=== PATIENT | male | born 1960 | race Caucasian/White ===

== ENCOUNTER 2020-11-18 08:31 | Outpatient (REF) | payer OTHER, SELFPAY ==
[2020-11-18 11:56] LABS: Alanine Aminotransferase 30 U/L (0-40); Albumin Level 4.5 g/dL (3.5-5.0); Alkaline Phosphatase 66 U/L (39-117); Anion Gap 13 (12-20); Aspartate Amino Transferase 21 U/L (5-37); Bilirubin Total 0.6 mg/dL (0.0-1.0); Blood Urea Nitrogen 15 mg/dL (9-16); Calcium 9.5 mg/dL (8.4-10.2); Carbon Dioxide 26 mmol/L (22-29); Chloride 105 mmol/L (96-108); Cholesterol 205 mg/dL; Estimated Glomerular Filt Rate > 60; Glucose Fasting 99 mg/dL (60-99); HDL Cholesterol 33 mg/dL; LDL Cholesterol Calculated 141 mg/dl; Potassium 4.5 mmol/L (3.3-5.1); Sodium 139 mmol/L (135-145); Total Protein 7.2 g/dL (6.5-8.0); Triglycerides 155 mg/dL
== END 2020-11-18 08:32 | disposition home or self-care (01) ==
LOC: HO.HMGCLDS 08:31
PROVIDERS: PCP Internal Medicine; Visit Provider Internal Medicine
DX: E78.9 Disorder of lipoprotein metabolism, unspecified (principal); I10 Essential (primary) hypertension
CPT/HCPCS: 36415; 80053; 80061

== ENCOUNTER 2022-02-11 07:02 | Outpatient (REF) | payer OTHER, SELFPAY ==
[2022-02-11 11:39] LABS: Hematocrit 45.6 % (42.0-52.0); Hemoglobin 14.8 g/dl (14.0-18.0); Mean Corpuscular HGB Conc 32.5 g/dl (31.0-36.0); Mean Corpuscular Hemoglobin 29.4 pg (27.0-33.0); Mean Corpuscular Volume 90.5 fL (80.0-98.0); Mean Platelet Volume 10.3 fL (9.4-12.4); Platelet Count 275 X10*3/uL (160-400); Red Blood Count 5.04 X10*6/uL (4.60-5.80); Red Cell Distribution Width 13.5 % (11.0-16.0); White Blood Count 8.8 X10*3/uL (4.8-10.8)
[2022-02-11 12:21] LABS: Creatinine Urine 158.23 mg/dL; Microalbum/Creatinine Ratio Ur 7.5 ug/mg cr
[2022-02-11 12:31] LABS: Alanine Aminotransferase 31 U/L (0-40); Albumin Level 4.5 g/dL (3.5-5.0); Alkaline Phosphatase 63 U/L (39-117); Anion Gap 16 (12-20); Aspartate Amino Transferase 24 U/L (5-37); Bilirubin Total 0.4 mg/dL (0.0-1.0); Blood Urea Nitrogen 19 mg/dL (9-16); Calcium 9.5 mg/dL (8.4-10.2); Carbon Dioxide 27 mmol/L (22-29); Chloride 102 mmol/L (96-108); Cholesterol 208 mg/dL; Estimated Glomerular Filt Rate > 60; Glucose Fasting 99 mg/dL (60-99); HDL Cholesterol 32 mg/dL; LDL Cholesterol Calculated 139 mg/dl; Potassium 4.6 mmol/L (3.3-5.1); Sodium 140 mmol/L (135-145); Total Protein 7.3 g/dL (6.5-8.0); Triglycerides 186 mg/dL
[2022-02-11 12:39] LABS: Prostate Specific Antigen Scr 0.25 ng/mL (<0.05-4.0); TSH reflex Free T4 5.33 uIU/mL (0.32-4.0)
[2022-02-11 13:21] LABS: Free T4 (Free Thyroxine) 0.87 ng/dL (0.71-1.85)
== END 2022-02-11 07:03 | disposition home or self-care (01) ==
LOC: HO.HMGCLDS 07:02
PROVIDERS: PCP Physician Assistant; Visit Provider Physician Assistant
DX: E78.5 Hyperlipidemia, unspecified (principal); I10 Essential (primary) hypertension; Z12.5 Encounter for screening for malignant neoplasm of prostate
CPT/HCPCS: 36415; 80053; 80061; 82043; 84153; 84439; 84443; 85027

== ENCOUNTER 2022-05-26 13:34 | Outpatient (REF) | payer OTHER, SELFPAY ==
--- NOTE | ~2022-05-26 | CT_ITS ---
EXAMINATION: CT CHEST SCREENING CLINICAL INFORMATION: Nicotine dependence. COMPARISON: None TECHNIQUE: Multidetector volumetric CT imaging of the chest was performed without contrast using low-dose technique. Additional 2D coronal and sagittal reformatted images and axial 3D maximum intensity projection (MIP) images were generated on the CT workstation. This CT examination was performed using dose optimization techniques as appropriate, variously including the following: *Automated exposure control *Adjustment of mA and/or kV according to patient size (this includes techniques or standardized protocols for targeted exams where dose is matched to indication/reason for exam; i.e. extremities or head) *Use of iterative reconstruction technique DLP: 75 mGy-cm FINDINGS: LUNGS: The lungs are hyperinflated and clear of acute pneumonic etiology. There are small intrabronchial or nodules. A 6 mm nodule in the left upper lobe (axial image 26/4), a 2 mm nodule in the right upper lobe (axial image 26/4). Intrabronchial debris or nodules measuring 6 mm, 9 mm and 1.4 cm nodule left upper lobe (axial image 28/4), 3 mm nodule in the right middle lobe (axial image 307/6), intrabronchial 6 mm debris in the left lower lobe (axial image 47/4). MEDIASTINUM: Thyroid lobes are symmetric and normal. The central trachea and the bronchi are widely patent. Heart size and the great vessels are normal caliber. There is no pericardial effusion seen. Small shotty lymph nodes are seen in the mediastinum. CORONARY ARTERY CALCIFICATION: [id number] coronary artery calcifications are seen. PLEURA: There is no pleural effusion, mass or thickening. AXILLA: Small shotty lymph nodes are seen in the left axilla. UPPER ABDOMEN: The visualized liver, spleen, pancreas and bilateral adrenal glands are unremarkable. OSSEOUS STRUCTURES: No aggressive lytic or sclerotic process is seen. Mild ventral spondylosis is seen in the mid and lower dorsal spine. CT/CT lung screening IMPRESSION: 1. Hyperinflated lungs without acute pneumonic etiology. 2. There are multiple intrabronchial nodules as described above, the largest measuring 6 mm. ASSESSMENT: Lung-RADS category 3: Probably Benign RECOMMENDATION: 6-month low-dose CT.
== END 2022-05-26 13:35 | disposition home or self-care (01) ==
LOC: HO.CT 13:34
PROVIDERS: PCP Physician Assistant; Visit Provider Physician Assistant Medical
DX: Z12.2 Encounter for screening for malignant neoplasm of respiratory organs (principal); F17.210 Nicotine dependence, cigarettes, uncomplicated
CPT/HCPCS: 71271; G0296

== ENCOUNTER 2022-11-03 07:18 | Outpatient (REF) | payer OTHER, SELFPAY | END 2022-11-03 07:19 | disposition home or self-care (01) | LOC: HO.HMGCLDS 07:18 | PROVIDERS: PCP Physician Assistant; Visit Provider Physician Assistant | DX: Z01.818 Encounter for other preprocedural examination (principal); Z12.5 Encounter for screening for malignant neoplasm of prostate; E03.9 Hypothyroidism, unspecified; I10 Essential (primary) hypertension; E78.2 Mixed hyperlipidemia; F17.200 Nicotine dependence, unspecified, uncomplicated | CPT/HCPCS: 36415; 80048; 80053; 80061; 84153; 84439; 84443; 85027; 85610 ==

== ENCOUNTER 2022-12-11 09:02 | Outpatient (REF) | payer OTHER, SELFPAY ==
--- NOTE | ~2022-12-11 | CT_ITS ---
EXAMINATION: CT CHEST SCREENING CLINICAL INFORMATION: Lung cancer screening. Six-month followup. Current smoker. 43 pack-year history. COMPARISON: Previous chest CT April 2022. TECHNIQUE: Multidetector volumetric CT imaging of the chest is performed without contrast using low dose technique. Additional 2D coronal and sagittal reformatted images and axial 3D maximum intensity projection (MIP) images are generated on the CT workstation. This CT examination was performed using dose optimization techniques as appropriate, variously including the following: *Automated exposure control *Adjustment of mA and/or kV according to patient size (this includes techniques or standardized protocols for targeted exams where dose is matched to indication/reason for exam; i.e. extremities or head) *Use of iterative reconstruction technique DLP: 65 mGy-cm FINDINGS: LUNGS: Mild emphysema. Small clustered central left upper lobe nodules largest measuring 4 x 6 mm axial image 184 and 193 series 5. There is mild central left lung bronchiectasis and left upper lobe bronchial wall thickening. This is slightly improved from April 2022 exam. Stable heterogeneous or semisolid right middle lobe nodule near the major fissure axial image 271 series 5. No new pulmonary nodule. MEDIASTINUM: The mediastinum is normal. CORONARY ARTERY CALCIFICATION: Mild. PLEURA: There is no pleural effusion. No pleural mass or thickening. AXILLA: No lymphadenopathy. UPPER ABDOMEN: Stable 1 x 1.5 cm low-attenuation right adrenal lesion probably representing a benign lipid-rich adenoma. No imaging followup recommended. OSSEOUS STRUCTURES: Degenerative changes of the spine. CT/CT lung screen follow up IMPRESSION: Mild emphysema. Improving left upper lobe bronchial wall thickening and peribronchial nodules from April 2022 exam. ASSESSMENT: Lung-RADS category 2 RECOMMENDATION: Low dose 6-[address] followup recommended.
== END 2022-12-11 09:03 | disposition home or self-care (01) ==
LOC: HO.CT 09:02
PROVIDERS: PCP Physician Assistant; Visit Provider Physician Assistant Medical
DX: Z12.2 Encounter for screening for malignant neoplasm of respiratory organs (principal); F17.210 Nicotine dependence, cigarettes, uncomplicated; R91.8 Other nonspecific abnormal finding of lung field
CPT/HCPCS: 71250

== ENCOUNTER 2023-04-25 08:44 | Outpatient (AMB) | payer OTHER, SELFPAY ==
[2023-04-25 08:49] VITALS: BP 152/80; PULSE 84; O2SAT 100; BMI 31.4
--- NOTE | 2023-04-25 08:49 | A.OFFPC_ITS ---
Vital Signs 04/25/23 08:49 Height 5 ft 11 in Weight 225 lb BMI 31.4 BP 152/80 H Blood Pressure Location Lt brachial Position Sitting Pulse 84 Pulse Source Pulse Oximeter Pulse Oximetry (%) 100 Oxygen Delivery Method Room Air Intake Visit Reasons: f/u HTN / Hypoyhroid Intake Note: Patient is here to follow up Playback Operator Required: No Allergies No Known Allergies Allergy (Verified 04/25/23 09:24) Medication List - Last Reconciled 04/25/23 by Roberto Carlos Miranda PA-C atenolol 50 mg PO DAILY 90 days levothyroxine 25 mcg PO DAILY miscellaneous medical supply (Blood Pressure Cuff) As directed pravastatin 40 mg PO DAILY 90 days Tobacco use date assessed: 04/25/23 Dental Screening Dental Screen Date: 04/25/23 Did you have a dental visit in the last 12 months?: Yes Did you have a dental problem in the last 6 months where you did not have access to dental care?: No Was dental information given to patient?: Patient has dentist HPI f/u HTN / Hypoyhroid HPI Details Patient is a 62-year-old male here today for follow-up visit. Patient has a past medical history significant for tobacco dependency, hypertension, hyperlipidemia, lumbar disc disease, obesity. . .. Hypothyroidism:? Most recent labs showing elevated TSH , has started levothyroxine at 25 mcg .. HLD:? Patient's most recent fasting lipid panel showing borderline high cholesterol.? He continues on statin therapy without any side effect .. Hypertension: Has stopped using atenolol, blood pressure today in office elevat ed. He will restart atenolol for better blood pressure control. Will continue to work on lifestyle modifications to control his blood pressure. PLAN: Advised to monitor blood pressure at home .. Tobacco dependency: Smoking 5 cigarettes per day.? He does understand he needs to quit though has found it very difficult. He reports he started smoking as a teenager. Now in lung cancer screening program and does have pulmonary nodule that is being followed .. Obesity: Has gained weight since last office visit. Today BMI 31.4. He does understand he needs to Adapta better eating habits to reduce his weight.. [facility] Medical History History of COVID-19 Mild obstructive sleep apnea Nicotine dependence, cigarettes, uncomplicated Hypothyroidism Obese HLD (hyperlipidemia) Hypertension, essential Surgical History History of lumbar surgery History of cystoscopy History of dental surgery Family History Father Knee problem CVD (cardiovascular disease) Mother S/P triple vessel bypass CVD (cardiovascular disease) History of carotid endarterectomy Alzheimer's disease Dementia Brother No problems noted. Son No problems noted. Social History Housing: House Alcohol intake: current Alcohol intake frequency: holidays/special occasions only Patient Tobacco Use Status: Current everyday Tobacco user Tobacco use type: Cigarette Cigarettes Per Day: 4 Years Smoked: (onset 18yo , 1/2ppd x 43yrs - 21pyh) e-Cigarette/Vaping Use: Never Used service: Yes ([employer]) Current occupational status: employed Cognitive needs: No Hearing needs: No Vision needs: No Questionnaire Thrive Questionnaire Date Thrive assessed: 10/24/22 AUDIT C Alcohol Use Questionnaire (AUDIT-C) 1. How often do you have a drink containing alcohol?: Monthly or less 2. How many drinks containing alcohol do you have on a typical day when you are drinking?: 1 or 2 3. How often do you have six or more drinks on one occasion?: Never Total Score: 1 GEORGE-7 AMB Questionnaire GEORGE-7 Date GEORGE - 7 assessed: 10/24/22 Source: Developed by Drs. Erasmo Mariee, Sagrario Canales, Abilio Bennett and colleagues, with an educational sukhjinder from [employer]. Review of Systems Const Denies body aches, Denies chills, Denies excessive sweating, Denies fatigue, Denies fever(s) and Denies headache(s) Eyes Denies blurry vision ENT Denies dysphagia, Denies vertigo, Denies dizziness, Denies headache(s), Denies hearing loss and Denies tinnitus Card Denies chest pain, Denies chest pain with activity, Denies syncope, Denies irregular heart rhythm and Denies dyspnea Resp Denies chest congestion, Denies cough, Denies hemoptysis, Denies dyspnea and Denies wheezing GI Denies abdominal pain, Denies melena, Denies hematochezia, Denies coffee ground emesis, Denies dysphagia, Denies diarrhea, Denies nausea and Denies vomiting Denies difficulty urinating, Denies dysuria, Denies urinary frequency, Denies urinary hesitancy and Denies urinary urgency Musc Denies arthralgias, Denies limited range of motion, Denies muscle cramps and Denies muscle weakness Skin/Breast Denies rash and Denies skin ulcer Neuro Denies Abnormal speech present, Denies confusion, Denies vertigo, Denies dizziness, Denies syncope, Denies headache(s), Denies memory loss and Denies seizure-like activity Psych Denies anxiety, Denies confusion, Denies depression, Denies memory loss, Denies panic attacks and Denies paranoia Endo Denies excessive sweating, Denies fatigue, Denies flushing, Denies polydipsia and Denies polyuria Aller/Immun Denies wheezing Physical exam (Primary Care) Vital Signs: Last Vital Signs Pulse 84 04/25/23 08:49 BP 152/80 H 04/25/23 08:49 Pulse Ox 100 04/25/23 08:49 Oxygen Delivery Method Room Air 04/25/23 08:49 BMI result Body Mass Index 31.4 BMI Assessment/Plan discussion: High Tobacco/Smoking Status: Tobacco use Status Tobacco use date assessed 04/25/23 04/25/23 08:49 Patient Tobacco Use Status Current everyday Tobacco 04/25/23 08:49 Tobacco use type Cigarette 04/25/23 08:49 e-Cigarette/Vaping Use Never Used 04/25/23 08:49 Are you ready to quit: No Tobacco cessation counseling provided: Yes Items discussed: Nicotine replacement Relapse Prevention: discussed the importance of a supportive environment, discussed negative mood or depression after quitting, weight gain after smoking is common and discussed dietary, exercise and/or lifestyle changes Number of minutes spent counselin CPT code: 73668 - 4-10 Minutes Thrive Assessment: Date of Thrive Assessment Date Thrive assessed 10/24/22 04/25/23 08:49 Const Other: Obese General: cooperative, comfortable, no acute distress, alert and awake; No confusion Orientation/consciousness: oriented to person, oriented to place, patient oriented x3 and No confusion HENMT Head: Yes normocephalic Ears: external ears normal and TM's normal bilaterally Face and sinus: No sinus tenderness Mouth: Normal oral and palatal mucosa present and tongue normal Teeth and gingiva: dentition normal and gingiva normal Throat: Yes posterior oropharynx normal, Yes tonsils normal and Yes uvula midline Eyes Conjunctivae: conjunctivae normal Sclerae: sclerae normal Pupils: Equal, round and reactive pupils present EOM: EOMs intact bilaterally Direct Ophthalmoscopy: No no photophobia Neck Neck: Yes no lymphadenopathy, No tender and Yes no JVD Thyroid: Thyroid normal Carotids: no bruits Chest Chest palpation & inspection: no tenderness Resp Effort & Inspection: normal respiratory effort, no audible wheezes, not labored and no stridor Auscultation: no crackles, no rales, no rhonchi and no wheezes Cardio Jugular venous distension: no JVD Rate: regular rate, not bradycardic and not tachycardic Rhythm: regular rhythm Bruits: no carotid bruits Peripheral pulses: Peripheral pulses 2+ throughout GI Inspection: Yes normal to inspection, No abdominal wall ecchymosis and No visible herniation Palpation (GI): Soft to palpation, nontender, no guarding, not rigid and No hepatosplenomegaly present Auscultation: normoactive bowel sounds General: Yes no CVA tenderness Back/Spine/Pelvis Back: no CVA tenderness and No back tenderness Cervical Spine: cervical ROM normal Thoracic/Lumbar Spine: thoracic and lumbar spine normal to inspection, straight leg raise negative bilaterally, No thoraco-lumbar ROM limited and No lumbar spinal tenderness Skin Lesions: no lesions Rashes: no rashes Wounds: no wounds Neuro General: oriented to person, oriented to place, patient oriented x3, CN's II-XI intact bilaterally and No confusion Cranial nerves: Yes Equal, round and reactive pupils present and Yes Normal accommodation reflex present Cognition (Neuro): normal cognition Speech: No Abnormal speech present Gait exam (Neuro): Normal gait present Motor exam (neuro): 5/5 motor strength present throughout Extrem Right upper extremity: full ROM; no cyanosis Left upper extremity: full ROM; no cyanosis Right lower extremity: no edema Left lower extremity: no edema Psych Appearance: grossly normal Mental Status: mental status grossly normal Affect: normal affect Attitude: cooperative Thought process: Normal thought process present Assessment and Plan Assessment & Plan (1) Hypertension, essential: Code(s): I10 - Essential (primary) hypertension Plan: Blood pressure elevated today in office. Has not been taking blood pressure medication as he was able to treat his blood pressure with lifestyle. He is willing to restart atenolol and monitor blood pressure at home with goal blood pressure to be below 140/90 (2) Hypothyroidism: Code(s): E03.9 - Hypothyroidism, unspecified Qualifiers: Hypothyroidism type: unspecified Qualified Code(s): E03.9 - Hypothyroidism, unspecified Plan: Patient continues on levothyroxine 25 mcg. Will recheck TSH to assure normal. (3) HLD (hyperlipidemia): Code(s): E78.5 - Hyperlipidemia, unspecified Qualifiers: Hyperlipidemia type: mixed hyperlipidemia Qualified Code(s): E78.2 - Mixed hyperlipidemia Plan: Continues on statin therapy without side effect. Will recheck check fasting lipid panel to assure normal. Goal LDL to remain below 130 (4) Nicotine dependence, cigarettes, uncomplicated: Comment: (current smoker, onset 18yo , 1/2ppd x 43yrs - 21pyh) Code(s): F17.210 - Nicotine dependence, cigarettes, uncomplicated Plan: He does understand he needs to quit smoking. Offered nicotine replacement at though he declines at this time. Orders: Orders TSH reflex Free T4 Today E03.9 - Hypothyroidism, unspecified Roberto Carlos Miranda PA-C Lipid Panel Today E78.2 - Mixed hyperlipidemia Roberto Carlos Miranda PA-C Prostate Specific Antigen Scr Today I10 - Essential (primary) hypertension, Z12.5 - Encounter for screening for malignant neoplasm of prostate Roberto Carlos Miranda PA-C Comprehensive [place]. Panel Fast Today I10 - Essential (primary) hypertension Roberto Carlos Miranda PA-C Microalbumin, Random (w Creat) Today I10 - Essential (primary) hypertension Roberto Carlos Miranda PA-C Medications: Resumed atenolol 50 mg PO DAILY 90 days 90 tabs 1RF I10 - Essential (primary) hypertension Roberto Carlos Miranda PA-C atenolol 50 mg PO DAILY 90 days 90 tabs 0RF I10 - Essential (primary) hypertension Samanta Ricardo MD Coding Level of Care Code Est Pt Level 4 (84557) Diagnoses Hypertension, essential I10 Hypothyroidism, unspecified type E03.9 Hypothyroidism type: unspecified Mixed hyperlipidemia E78.2 Hyperlipidemia type: mixed hyperlipidemia Nicotine dependence, cigarettes, uncomplicated F17.210 Additional Codes Vital Signs *Quality* - CPT code: 51833 - 4-10 Minutes ([id number])
== END 2023-04-25 09:37 | disposition home or self-care (01) ==
PROVIDERS: PCP Physician Assistant; Visit Provider Physician Assistant
DX: I10 Essential (primary) hypertension (principal); E03.9 Hypothyroidism, unspecified; E78.2 Mixed hyperlipidemia; F17.210 Nicotine dependence, cigarettes, uncomplicated
CPT/HCPCS: 99214; 99406

== ENCOUNTER 2023-10-23 14:26 | Outpatient (AMB) | payer OTHER, SELFPAY ==
--- NOTE | 2023-10-23 14:33 | A.OFFPC_ITS ---
Vital Signs 10/23/23 14:37 Height 5 ft 11 in Weight 225 lb 2 oz BMI 31.4 BP 130/64 Blood Pressure Location Lt brachial Position Sitting Pulse 78 Pulse Source Pulse Oximeter Pulse Oximetry (%) 95 Oxygen Delivery Method Room Air Intake Visit Reasons: Annual exam Intake Note: Patient is here today for a physical. Osteopathic Resident Required: No Accompanied by: Self / Same As Patient Allergies No Known Allergies Allergy (Verified 10/23/23 14:40) Medication List - Last Reconciled 10/23/23 by Roberto Carlos Miranda PA-C atenolol 50 mg PO DAILY 90 days levothyroxine 25 mcg PO DAILY miscellaneous medical supply (Blood Pressure Cuff) As directed pravastatin 40 mg PO DAILY 90 days Tobacco use date assessed: 10/23/23 Dental Screening Dental Screen Date: 10/23/23 Did you have a dental visit in the last 12 months?: No Did you have a dental problem in the last 6 months where you did not have access to dental care?: No Was dental information given to patient?: Patient has dentist HPI Annual exam HPI Details Patient is a 62-year-old male here today for follow-up visit. Patient has a past medical history significant for tobacco dependency, hypertension, hyperlipidemia, lumbar disc disease, obesity. . .. Hypothyroidism:? He admits to not taking levothyroxine as he reports making changes in his diet and lifestyle. He will recheck TSH and if elevated will restart levothyroxine. .. HLD:? Patient's most recent fasting lipid panel showing borderline high cholesterol.? He has not been taking statin therapy a see reports making changes in his diet. .. Hypertension: He reports he continues with daily use of his atenolol. Blood pressure today acceptable. Will continue to work on lifestyle modifications to control his blood pressure. .. Tobacco dependency: Smoking 5 cigarettes per day.? He does understand he needs to quit though has found it very difficult. He reports he started smoking as a teenager. Now in lung cancer screening program and does have pulmonary nodule that is being followed . VAccine: UTD with FLu and COVID vaccine, up-to-date with tetanus and pneumonia vaccine .. Colonoscopy : cologaurd done in 2019, he has repeat in 2022 [facility] Medical History History of COVID-19 Mild obstructive sleep apnea Nicotine dependence, cigarettes, uncomplicated Hypothyroidism Obese HLD (hyperlipidemia) Hypertension, essential Surgical History History of lumbar surgery History of cystoscopy History of dental surgery Family History Father Knee problem CVD (cardiovascular disease) Mother S/P triple vessel bypass CVD (cardiovascular disease) History of carotid endarterectomy Alzheimer's disease Dementia Brother No problems noted. Son No problems noted. Social History (Updated 10/23/23 @ 14:52 by Roberto Carlos Miranda PA-C) Housing: House Alcohol intake: current Alcohol intake frequency: holidays/special occasions only Patient Tobacco Use Status: Current everyday Tobacco user Tobacco use type: Cigarette Cigarettes Per Day: 4 Years Smoked: (onset 18yo , 1/2ppd x 43yrs - 21pyh) e-Cigarette/Vaping Use: Never Used service: Yes ([employer]) Current occupational status: employed Cognitive needs: No Hearing needs: No Vision needs: No Questionnaire PHQ-9 Over the last 2 weeks, how often have you been bothered by any of the following problems? 1. Little interest or pleasure in doing things: not at all 2. Feeling down, depressed, or hopeless: not at all 3. Trouble falling or staying asleep, or sleeping too much: not at all 4. Feeling tired or having little energy: not at all 5. Poor appetite or overeating: not at all 6. Feeling bad about yourself - or that you are a failure or have let yourself or your family down: not at all 7. Trouble concentrating on things, such as reading the newspaper or watching television: not at all 8. Moving or speaking so slowly that other people could have noticed. Or the opposite - being so fidgety or restless that you have been moving around a lot more than usual: not at all 9. Thoughts that you would be better off or of hurting yourself in some way: not at all Total score: 0 Depression Screening Interpretation: Negative Depression Screening Done: Yes 62197 - PHQ-9 Billing: Yes Source: Developed by Drs. Erasmo Mariee, Abilio Ortega and colleagues, with an educational sukhjinder from [employer]. Thrive Questionnaire Date Thrive assessed: 10/23/23 I am a: Patient What is your living situation today?: I have a steady place to live Within the past 12 months, did the food you bought not last and you didn't have the money to get more?: Never true Within the past 12 months, did you worry whether your food would run out before you got money to buy more?: Never true Do you have trouble paying for medicines?: No Do you have trouble getting transportation to medical appointments?: No Do you have trouble paying your heating and electricity bill?: No Do you have trouble taking care of your child, family member or friend?: No Do you have trouble with day-to-day activities such as bathing, preparing meals, shopping, managing finances, etc.?: No Are you currently unemployed and looking for a job?: No Are you interested in more education?: No Please select the resources that you would like help with: None Currently or been in a relationship where the following occur: no concerns reported THRIVE Score: 0 AUDIT C Alcohol Use Questionnaire (AUDIT-C) 1. How often do you have a drink containing alcohol?: Monthly or less 2. How many drinks containing alcohol do you have on a typical day when you are drinking?: 1 or 2 3. How often do you have six or more drinks on one occasion?: Never Total Score: 1 GEORGE-7 AMB Questionnaire GEORGE-7 Date GEORGE - 7 assessed: 10/23/23 Feeling nervous, anxious, or on edge: 0 = Not at all Not being able to stop or control worryin = Not at all Worrying too much about different things: 0 = Not at all Trouble relaxin = Not at all Being so restless that it is hard to sit still: 0 = Not at all Becoming easily annoyed or irritable: 0 = Not at all Feeling afraid as if something awful might happen: 0 = Not at all Total GEORGE-7 score (0-4 normal; 5-9 mild; 10-14 moderate; 15-21 severe): 0 Source: Developed by Drs. Erasmo Mariee, Abilio Ortega and colleagues, with an educational sukhjinder from [employer]. GEORGE-7 Assessment Billing GEORGE-7 Assessment Tool: GEORGE-7 Assessment 67700 Review of Systems Const Denies body aches, Denies chills, Denies excessive sweating, Denies fatigue, Denies fever(s) and Denies headache(s) Eyes Denies blurry vision ENT Denies dysphagia, Denies vertigo, Denies dizziness, Denies headache(s), Denies hearing loss and Denies tinnitus Card Denies chest pain, Denies chest pain with activity, Denies syncope, Denies irregular heart rhythm and Denies dyspnea Resp Denies chest congestion, Denies cough, Denies hemoptysis, Denies dyspnea and Denies wheezing GI Denies abdominal pain, Denies melena, Denies hematochezia, Denies coffee ground emesis, Denies dysphagia, Denies diarrhea, Denies nausea and Denies vomiting Denies difficulty urinating, Denies dysuria, Denies urinary frequency, Denies urinary hesitancy and Denies urinary urgency Musc Denies arthralgias, Denies limited range of motion, Denies muscle cramps and Denies muscle weakness Skin/Breast Denies rash and Denies skin ulcer Neuro Denies Abnormal speech present, Denies confusion, Denies vertigo, Denies dizziness, Denies syncope, Denies headache(s), Denies memory loss and Denies seizure-like activity Psych Denies anxiety, Denies confusion, Denies depression, Denies memory loss, Denies panic attacks and Denies paranoia Endo Denies excessive sweating, Denies fatigue, Denies flushing, Denies polydipsia and Denies polyuria Aller/Immun Denies wheezing Physical exam (Primary Care) Vital Signs: Last Vital Signs Pulse 78 10/23/23 14:37 BP 130/64 10/23/23 14:37 Pulse Ox 95 10/23/23 14:37 Oxygen Delivery Method Room Air 10/23/23 14:37 BMI result Body Mass Index 31.4 Tobacco/Smoking Status: Tobacco use Status Tobacco use date assessed 10/23/23 10/23/23 14:38 Patient Tobacco Use Status Current everyday Tobacco 10/23/23 14:52 Tobacco use type Cigarette 10/23/23 14:52 e-Cigarette/Vaping Use Never Used 10/23/23 14:52 Are you ready to quit: No Tobacco cessation counseling provided: Yes Items discussed: Nicotine replacement Relapse Prevention: discussed the importance of a supportive environment, discussed negative mood or depression after quitting, weight gain after smoking is common and discussed dietary, exercise and/or lifestyle changes Number of minutes spent counselin CPT code: 01173 - 4-10 Minutes PHQ-9: PHQ-9 Score PHQ-9: Total score 0 10/23/23 14:48 Depression Screening Interpretation: Negative Thrive Assessment: Date of Thrive Assessment Date Thrive assessed 10/23/23 10/23/23 14:35 Currently or been in a relationship where the following occur: no concerns reported Const General: cooperative, comfortable, no acute distress, alert and awake; No confusion Orientation/consciousness: oriented to person, oriented to place, patient oriented x3 and No confusion HENMT Head: Yes normocephalic Ears: external ears normal and TM's normal bilaterally Face and sinus: No sinus tenderness Mouth: Normal oral and palatal mucosa present and tongue normal Teeth and gingiva: dentition normal and gingiva normal Throat: Yes posterior oropharynx normal, Yes tonsils normal and Yes uvula midline Eyes Conjunctivae: conjunctivae normal Sclerae: sclerae normal Pupils: Equal, round and reactive pupils present EOM: EOMs intact bilaterally Direct Ophthalmoscopy: No no photophobia Neck Neck: Yes no lymphadenopathy, No tender and Yes no JVD Thyroid: Thyroid normal Carotids: no bruits Chest Chest palpation & inspection: no tenderness Resp Effort & Inspection: normal respiratory effort, no audible wheezes, not labored and no stridor Auscultation: no crackles, no rales, no rhonchi and no wheezes Cardio Jugular venous distension: no JVD Rate: regular rate, not bradycardic and not tachycardic Rhythm: regular rhythm Bruits: no carotid bruits Peripheral pulses: Peripheral pulses 2+ throughout GI Inspection: Yes normal to inspection, No abdominal wall ecchymosis and No visible herniation Palpation (GI): Soft to palpation, nontender, no guarding, not rigid and No hepatosplenomegaly present Auscultation: normoactive bowel sounds General: Yes no CVA tenderness Back/Spine/Pelvis Back: no CVA tenderness and No back tenderness Cervical Spine: cervical ROM normal Thoracic/Lumbar Spine: thoracic and lumbar spine normal to inspection, straight leg raise negative bilaterally, No thoraco-lumbar ROM limited and No lumbar spinal tenderness Skin Lesions: no lesions Rashes: no rashes Wounds: no wounds Neuro General: oriented to person, oriented to place, patient oriented x3, CN's II-XI intact bilaterally and No confusion Cranial nerves: Yes Equal, round and reactive pupils present and Yes Normal accommodation reflex present Cognition (Neuro): normal cognition Speech: No Abnormal speech present Gait exam (Neuro): Normal gait present Motor exam (neuro): 5/5 motor strength present throughout Extrem Right upper extremity: full ROM; no cyanosis Left upper extremity: full ROM; no cyanosis Right lower extremity: no edema Left lower extremity: no edema Psych Appearance: grossly normal Mental Status: mental status grossly normal Affect: normal affect Attitude: cooperative Thought process: Normal thought process present Assessment and Plan Assessment & Plan (1) Annual physical exam: Code(s): Z00.00 - Encounter for general adult medical examination without abnormal findings (2) Hypertension, essential: Code(s): I10 - Essential (primary) hypertension Plan: Blood pressure acceptable today in office. His consistent with his use of atenolol.. Has not been taking blood pressure medication as he was able to treat his blood pressure with lifestyle. Goal blood pressures to remain below 140/90 (3) Hypothyroidism: Code(s): E03.9 - Hypothyroidism, unspecified Qualifiers: Hypothyroidism type: unspecified Qualified Code(s): E03.9 - Hypothyroidism, unspecified Plan: He has not been using levothyroxine 25 mcg. Will recheck TSH and elevated will advised to restart levothyroxine. (4) HLD (hyperlipidemia): Code(s): E78.5 - Hyperlipidemia, unspecified Qualifiers: Hyperlipidemia type: mixed hyperlipidemia Qualified Code(s): E78.2 - Mixed hyperlipidemia Plan: He has not been taking statin therapy. Has been making changes in his diet and lifestyle. Will consider restarting statin therapy cholesterol elevates. Goal LDL to remain below 130 (5) Nicotine dependence, cigarettes, uncomplicated: Comment: (current smoker, onset 18yo , 1/2ppd x 43yrs - 21pyh) Code(s): F17.210 - Nicotine dependence, cigarettes, uncomplicated Plan: He does understand he needs to quit smoking. Offered nicotine replacement at though he declines at this time. Medications: Refilled levothyroxine 25 mcg PO DAILY 30 tabs 3RF E03.9 - Hypothyroidism, unspecified pravastatin 40 mg PO DAILY 90 tabs 0RF 90 days E78.9 - Disorder of lipoprotein metabolism, unspecified Patient Instructions: Goal: Blood pressure to remain below 140/90, LDL to remain below 130x, STOPPED SMOKING Barriers: Adherence to physical activity and healthy eating habits Coding Level of Care Code Est Pt Prev Care 40-64y(12385) Diagnoses Annual physical exam Z00.00 Hypertension, essential I10 Hypothyroidism, unspecified type E03.9 Hypothyroidism type: unspecified Mixed hyperlipidemia E78.2 Hyperlipidemia type: mixed hyperlipidemia Nicotine dependence, cigarettes, uncomplicated F17.210 Additional Codes GEORGE-7 Assessment Billing - GEORGE-7 Assessment Tool: GEORGE-7 Assessment 14509 ([id number]) Vital Signs *Quality* - CPT code: 36535 - 4-10 Minutes ([id number])
[2023-10-23 14:37] VITALS: BP 130/64; PULSE 78; O2SAT 95; BMI 31.4
== END 2023-10-23 15:01 | disposition home or self-care (01) ==
PROVIDERS: PCP Physician Assistant; Visit Provider Physician Assistant
DX: Z00.00 Encounter for general adult medical examination without abnormal findings (principal); I10 Essential (primary) hypertension; E03.9 Hypothyroidism, unspecified; E78.2 Mixed hyperlipidemia; F17.210 Nicotine dependence, cigarettes, uncomplicated
CPT/HCPCS: 99396

== ENCOUNTER 2024-01-17 11:05 | Outpatient (REF) | payer OTHER, SELFPAY ==
--- NOTE | ~2024-01-17 | CT_ITS ---
EXAMINATION: CT LOW-DOSE SCREENING CHEST WITHOUT CONTRAST CLINICAL INFORMATION: Nicotine dependence, cigarettes, uncomplicated. The patient is a current smoker with a 45 pack-year history of smoking. COMPARISON: CT chest December 11, 2022. TECHNIQUE: Multidetector volumetric CT imaging of the chest is performed on a Siemens SOMATOM Definition scanner without contrast using low dose technique. Additional 2D coronal and sagittal reformatted images and axial 3D maximum intensity projection (MIP) images are generated on the CT workstation. This CT examination was performed using dose optimization techniques as appropriate, variously including the following: *Automated exposure control *Adjustment of mA and/or kV according to patient size (this includes techniques or standardized protocols for targeted exams where dose is matched to indication/reason for exam; i.e. extremities or head) *Use of iterative reconstruction technique TOTAL EXAM DLP: 75 mGy-cm. CTDIvol: 2.13 mGy. FINDINGS: PULMONARY NODULES: There is improvement in the nodular densities previously seen in the left upper lobe, which predominantly represented fluid/material within cystic spaces. Cystic spaces remain and only a few of the nodular densities remain present, the largest two measuring 5.4 and 4.1 mm (5:186 and 193). Previously seen semisolid right middle lobe perifissural nodular density is unchanged at about 3.3 mm (5:269 compare prior 5:272). There is no new, increasing-sized or suspicious pulmonary nodules seen. LUNGS: Lungs bilaterally symmetrically expanded. There is moderate emphysema and bronchial thickening without bronchiectasis. No effusion or pneumothorax. Central airways patent. MEDIASTINUM: No mediastinal, hilar or axillary adenopathy or free fluid collection. CORONARY ARTERY CALCIFICATION: [id number]. THYROID GLAND: Unremarkable to the extent seen. CARDIOVASCULAR STRUCTURES: Aortic and heart size normal. No pericardial effusion. CHEST WALL/AXILLA: Unremarkable. UPPER ABDOMEN: Included portions of the solid organs in the upper abdomen unremarkable on noncontrast imaging. 1.6 cm lipid rich right adrenal adenoma is unchanged. OSSEOUS STRUCTURES: No suspicious focal findings. CT/CT lung screening IMPRESSION: No findings seen suspicious for malignancy. ASSESSMENT: 1. Lung-RADS Category 2: Benign appearance or behavior of nodules. N/A 2. Lung-RADS Category S: Negative. There are no clinically significant or potentially clinically significant findings not related to the lungs requiring urgent additional evaluation. RECOMMENDATION: Continued routine annual low-dose CT lung screening in 1 year is recommended. An order for CT CHEST LOW DOSE CANCER SCREENING ([id number]) can be placed. Electronically signed by: Jacob Vital MD 03/13/2024 04:08 PM [facility]
== END 2024-01-17 11:06 | disposition home or self-care (01) ==
LOC: HO.CT 11:05
PROVIDERS: PCP Physician Assistant; Visit Provider Physician Assistant Medical
DX: Z12.2 Encounter for screening for malignant neoplasm of respiratory organs (principal); F17.210 Nicotine dependence, cigarettes, uncomplicated
CPT/HCPCS: 71271

== ENCOUNTER 2024-06-02 15:07 | Outpatient (AMB) | payer OTHER, SELFPAY ==
--- NOTE | 2024-06-02 15:15 | MHC.PC.OV ---
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 Accompanied by: Self / Same As Patient Allergies No Known Allergies Allergy (Verified 06/02/24 15:26) Medication List - Last Reconciled 06/02/24 by Roberto Carlos Miranda PA-C atenolol 50 mg PO DAILY 90 days levothyroxine 25 mcg PO DAILY miscellaneous medical supply (Blood Pressure Cuff) As directed pravastatin 40 mg PO DAILY 90 days Tobacco use date assessed: 06/02/24 Dental Screening Dental Screen Date: 06/02/24 Did you have a dental visit in the last 12 months?: Yes Did you have a dental problem in the last 6 months where you did not have access to dental care?: No Was dental information given to patient?: Patient has dentist HPI annual exam HPI Details Patient is a 63 . Patient has a past medical history significant for tobacco dependency, hypertension, hyperlipidemia, lumbar disc disease, obesity. . .. Hypothyroidism:? He admits to not taking levothyroxine as he reports making changes in his diet and lifestyle. He will recheck TSH .. HLD:? Patient's most recent fasting lipid panel showing borderline high cholesterol.? He has not been taking statin therapy a see reports making changes in his diet. .. Hypertension: The patient has a history of elevated blood pressure, which has been uncontrolled due to medication non-compliance over the past three to four weeks. The patient reports a recorded blood pressure of 164/78 today. .. Tobacco dependency: Smoking 6 cigarettes per day.? He does understand he needs to quit though has found it very difficult. He reports he started smoking as a teenager. Now in lung cancer screening program and does have pulmonary nodule that is being followed . VAccine: UTD with FLu and COVID vaccine, up-to-date with tetanus , Need PCV-20. .. Colonoscopy : cologaurd done in 2020, Needs new Cologaurd. [facility] Medical History History of COVID-19 Mild obstructive sleep apnea Nicotine dependence, cigarettes, uncomplicated Hypothyroidism Obese HLD (hyperlipidemia) Hypertension, essential Surgical History History of lumbar surgery History of cystoscopy History of dental surgery Family History Father Knee problem CVD (cardiovascular disease) Mother S/P triple vessel bypass CVD (cardiovascular disease) History of carotid endarterectomy Alzheimer's disease Dementia Brother No problems noted. Son No problems noted. Social History (Updated 06/02/24 @ 15:31 by Roberto Carlos Miranda PA-C) Housing: House Alcohol intake: current Alcohol intake frequency: holidays/special occasions only Patient Tobacco Use Status: Current everyday Tobacco user Tobacco use type: Cigarette Cigarettes Per Day: 6 Years Smoked: (onset 18yo , 1/2ppd x 43yrs - 21pyh) e-Cigarette/Vaping Use: Never Used service: Yes ([employer]) Current occupational status: employed Cognitive needs: No Hearing needs: No Vision needs: No Questionnaire PHQ-9 Over the last 2 weeks, how often have you been bothered by any of the following problems? 1. Little interest or pleasure in doing things: not at all 2. Feeling down, depressed, or hopeless: not at all 3. Trouble falling or staying asleep, or sleeping too much: not at all 4. Feeling tired or having little energy: not at all 5. Poor appetite or overeating: not at all 6. Feeling bad about yourself - or that you are a failure or have let yourself or your family down: not at all 7. Trouble concentrating on things, such as reading the newspaper or watching television: not at all 8. Moving or speaking so slowly that other people could have noticed. Or the opposite - being so fidgety or restless that you have been moving around a lot more than usual: not at all 9. Thoughts that you would be better off or of hurting yourself in some way: not at all Total score: 0 Depression Screening Interpretation: Negative Depression Screening Done: Yes 28197 - PHQ-9 Billing: Yes Source: Developed by Drs. Erasmo Mariee, Sagrario Canales, Abilio Bennett and colleagues, with an educational sukhjinder from [employer]. Thrive Questionnaire Date Thrive assessed: 06/02/24 I am a: Patient What is your living situation today?: I have a steady place to live Within the past 12 months, did the food you bought not last and you didn't have the money to get more?: Never true Within the past 12 months, did you worry whether your food would run out before you got money to buy more?: Never true Do you have trouble paying for medicines?: No Do you have trouble getting transportation to medical appointments?: No Do you have trouble paying your heating and electricity bill?: No Do you have trouble taking care of your child, family member or friend?: No Do you have trouble with day-to-day activities such as bathing, preparing meals, shopping, managing finances, etc.?: No Are you currently unemployed and looking for a job?: No Are you interested in more education?: No Please select the resources that you would like help with: None Currently or been in a relationship where the following occur: No concerns reported THRIVE Score: 0 AUDIT C Alcohol Use Questionnaire (AUDIT-C) 1. How often do you have a drink containing alcohol?: Monthly or less 2. How many drinks containing alcohol do you have on a typical day when you are drinking?: 1 or 2 3. How often do you have six or more drinks on one occasion?: Never Total Score: 1 GEORGE-7 AMB Questionnaire GEORGE-7 Date GEORGE - 7 assessed: 06/02/24 Feeling nervous, anxious, or on edge: 0 = Not at all Not being able to stop or control worryin = Not at all Worrying too much about different things: 0 = Not at all Trouble relaxin = Not at all Being so restless that it is hard to sit still: 0 = Not at all Becoming easily annoyed or irritable: 0 = Not at all Feeling afraid as if something awful might happen: 0 = Not at all Total GEORGE-7 score (0-4 normal; 5-9 mild; 10-14 moderate; 15-21 severe): 0 Source: Developed by Drs. Erasmo Mariee, Sagrario Canales, Abilio Bennett and colleagues, with an educational sukhjinder from [employer]. GEORGE-7 Assessment Billing GEORGE-7 Assessment Tool: GEORGE-7 Assessment 72953 Review of Systems Const Denies body aches, Denies chills, Denies excessive sweating, Denies fatigue, Denies fever(s) and Denies headache(s) Eyes Denies blurry vision ENT Denies dysphagia, Denies vertigo, Denies dizziness, Denies headache(s), Denies hearing loss and Denies tinnitus Card Denies chest pain, Denies chest pain with activity, Denies syncope, Denies irregular heart rhythm and Denies dyspnea Resp Denies chest congestion, Denies cough, Denies hemoptysis, Denies dyspnea and Denies wheezing GI Denies abdominal pain, Denies melena, Denies hematochezia, Denies coffee ground emesis, Denies dysphagia, Denies diarrhea, Denies nausea and Denies vomiting Denies difficulty urinating, Denies dysuria, Denies urinary frequency, Denies urinary hesitancy and Denies urinary urgency Musc Denies arthralgias, Denies limited range of motion, Denies muscle cramps and Denies muscle weakness Skin/Breast Denies rash and Denies skin ulcer Neuro Denies Abnormal speech present, Denies confusion, Denies vertigo, Denies dizziness, Denies syncope, Denies headache(s), Denies memory loss and Denies seizure-like activity Psych Denies anxiety, Denies confusion, Denies depression, Denies memory loss, Denies panic attacks and Denies paranoia Endo Denies excessive sweating, Denies fatigue, Denies flushing, Denies polydipsia and Denies polyuria Aller/Immun Denies wheezing Physical exam (Primary Care) Vital Signs: Last Vital Signs Temp 97.3 F 06/02/24 15:16 Pulse 90 06/02/24 15:16 BP 164/78 H 06/02/24 15:16 Pulse Ox 98 06/02/24 15:16 Oxygen Delivery Method Room Air 06/02/24 15:16 BMI result Body Mass Index 31.9 BMI Assessment/Plan discussion: High BMI High, discussed plan: lifestyle, weight reduction, dietary and physical activity Tobacco/Smoking Status: Tobacco use Status Tobacco use date assessed 06/02/24 06/02/24 15:20 Patient Tobacco Use Status Current everyday Tobacco 06/02/24 15:15 Tobacco use type Cigarette 06/02/24 15:15 e-Cigarette/Vaping Use Never Used 06/02/24 15:15 PHQ-9: PHQ-9 Score PHQ-9: Total score 0 06/02/24 15:47 Depression Screening Interpretation: Negative Thrive Assessment: Date of Thrive Assessment Date Thrive assessed 06/02/24 06/02/24 15:20 Currently or been in a relationship where the following occur: No concerns reported Const General: cooperative, comfortable, no acute distress, alert and awake; No confusion Orientation/consciousness: oriented to person, oriented to place, patient oriented x3 and No confusion HENMT Head: Yes normocephalic Ears: external ears normal and TM's normal bilaterally Face and sinus: No sinus tenderness Mouth: Normal oral and palatal mucosa present and tongue normal Teeth and gingiva: dentition normal and gingiva normal Throat: Yes posterior oropharynx normal, Yes tonsils normal and Yes uvula midline Eyes Conjunctivae: conjunctivae normal Sclerae: sclerae normal Pupils: Equal, round and reactive pupils present EOM: EOMs intact bilaterally Direct Ophthalmoscopy: No no photophobia Neck Neck: Yes no lymphadenopathy, No tender and Yes no JVD Thyroid: Thyroid normal Carotids: no bruits Chest Chest palpation & inspection: no tenderness Resp Effort & Inspection: normal respiratory effort, no audible wheezes, not labored and no stridor Auscultation: no crackles, no rales, no rhonchi and no wheezes Cardio Jugular venous distension: no JVD Rate: regular rate, not bradycardic and not tachycardic Rhythm: regular rhythm Bruits: no carotid bruits Peripheral pulses: Peripheral pulses 2+ throughout GI Inspection: Yes normal to inspection, No abdominal wall ecchymosis and No visible herniation Palpation (GI): Soft to palpation, nontender, no guarding, not rigid and No hepatosplenomegaly present Auscultation: normoactive bowel sounds General: Yes no CVA tenderness Back/Spine/Pelvis Back: no CVA tenderness and No back tenderness Cervical Spine: cervical ROM normal Thoracic/Lumbar Spine: thoracic and lumbar spine normal to inspection, straight leg raise negative bilaterally, No thoraco-lumbar ROM limited and No lumbar spinal tenderness Skin Lesions: no lesions Rashes: no rashes Wounds: no wounds Neuro General: oriented to person, oriented to place, patient oriented x3, CN's II-XI intact bilaterally and No confusion Cranial nerves: Yes Equal, round and reactive pupils present and Yes Normal accommodation reflex present Cognition (Neuro): normal cognition Speech: No Abnormal speech present Gait exam (Neuro): Normal gait present Motor exam (neuro): 5/5 motor strength present throughout Extrem Right upper extremity: full ROM; no cyanosis Left upper extremity: full ROM; no cyanosis Right lower extremity: no edema Left lower extremity: no edema Psych Appearance: grossly normal Mental Status: mental status grossly normal Affect: normal affect Attitude: cooperative Thought process: Normal thought process present Immunizations pneumoc 20-vance conj-dip cr(PF) 0.5 mL IM syringe Performing Provider: Roberto Carlos Miranda PA-C Performing Location: [facility] Administered by: KATIA Cisneros on 06/02/24 15:47 Dose Route Admin Location Dispensed Lot Number Expiration Date NDC Maintenance [place] 0.5 mL IM Left Deltoid 0.5 mL [id number] 07/29/25 9666-2771-43 [employer] [employer] VIS Given Date VIS Provided VIS Publication Date 06/02/24 Single Vaccine 21 Eligibility Eligibility Date Funding Source Not [facility] Eligible 06/02/24 Private Coding Level of Care Code Est Pt Prev Care 40-64y(10488) Diagnoses Annual physical exam Z00.00 Hypothyroidism, unspecified type E03.9 Hypothyroidism type: unspecified Hypertension, essential I10 Mixed hyperlipidemia E78.2 Hyperlipidemia type: mixed hyperlipidemia Nicotine dependence, cigarettes, uncomplicated F17.210 Additional Codes GEORGE-7 Assessment Billing - GEORGE-7 Assessment Tool: GEORGE-7 Assessment 67905 ([id number]) PHQ-9 - 31371 - PHQ-9 Billing: Yes ([id number]) Assessment & Plan Assessment & Plan (1) Annual physical exam: Code(s): Z00.00 - Encounter for general adult medical examination without abnormal findings Category: Medical Plan: As per HPI (2) Hypothyroidism: Code(s): E03.9 - Hypothyroidism, unspecified Category: Medical Qualifiers: Hypothyroidism type: unspecified Qualified Code(s): E03.9 - Hypothyroidism, unspecified Plan: Patient has not been on levothyroxine for quite some time. Has not gotten labs over 2 years. He is to get TSH checked in restart levothyroxine 25 mcg. (3) Hypertension, essential: Code(s): I10 - Essential (primary) hypertension Category: Medical Plan: Patient's blood pressure elevated today in office. He has not been taking his blood pressure medication over the last 3 weeks. He was on atenolol 50 mg which was effective for him. He will restart blood pressure medication today. Goal blood pressures to be below 140/90 (4) HLD (hyperlipidemia): Code(s): E78.5 - Hyperlipidemia, unspecified Category: Medical Qualifiers: Hyperlipidemia type: mixed hyperlipidemia Qualified Code(s): E78.2 - Mixed hyperlipidemia Plan: Patient continues on simvastatin without side effect. Again has not been taking any medication over last 3 weeks. He promises to restart medication. Goal LDL to be below 130 (5) Nicotine dependence, cigarettes, uncomplicated: Comment: (current smoker, onset 18yo , 1/2ppd x 43yrs - 21pyh) Code(s): F17.210 - Nicotine dependence, cigarettes, uncomplicated Category: Medical Plan: He does admit to smoking about 6 cigarettes per day. Offered him nicotine replacement though he declines my offers. Orders: Orders TSH reflex Free T4 06/02/24 E03.9 - Hypothyroidism, unspecified Complete Blood Count no Diff 06/02/24 I10 - Essential (primary) hypertension Lipid Panel 06/02/24 E78.2 - Mixed hyperlipidemia Comprehensive [place]. Panel Fast 06/02/24 I10 - Essential (primary) hypertension Pneumococcal 20 Immunization 06/02/24 Z23 - Encounter for immunization Medications: Refilled levothyroxine 25 mcg PO DAILY 30 tabs 3RF E03.9 - Hypothyroidism, unspecified
[2024-06-02 15:16] VITALS: BP 164/78; PULSE 90; TEMP 36.3; O2SAT 98; BMI 31.9
== END 2024-06-02 15:41 | disposition home or self-care (01) ==
PROVIDERS: PCP Physician Assistant; Visit Provider Physician Assistant
DX: Z00.00 Encounter for general adult medical examination without abnormal findings (principal); E03.9 Hypothyroidism, unspecified; I10 Essential (primary) hypertension; E78.2 Mixed hyperlipidemia; F17.210 Nicotine dependence, cigarettes, uncomplicated

== ENCOUNTER → 2024-06-02 15:07 | Outpatient (BNVA) | payer OTHER, SELFPAY | PROVIDERS: PCP Physician Assistant; Visit Provider Physician Assistant | DX: Z00.00 Encounter for general adult medical examination without abnormal findings (principal); Z23 Encounter for immunization; E03.9 Hypothyroidism, unspecified; I10 Essential (primary) hypertension; E78.2 Mixed hyperlipidemia; F17.210 Nicotine dependence, cigarettes, uncomplicated; Z79.899 Other long term (current) drug therapy | CPT/HCPCS: 90471; 90677; 96127 ==

== ENCOUNTER 2024-08-30 07:04 | Outpatient (REF) | payer OTHER, SELFPAY ==
[2024-08-30 12:06] LABS: Hematocrit 45.9 % (42.0-52.0); Mean Corpuscular HGB Conc 32.7 g/dl (31.0-36.0); Mean Corpuscular Hemoglobin 30.2 pg (27.0-33.0); Mean Corpuscular Volume 92.4 fL (80.0-98.0); Mean Platelet Volume 10.4 fL (9.4-12.4); Platelet Count 241 X10*3/uL (160-400); Red Blood Count 4.97 X10*6/uL (4.60-5.80); Red Cell Distribution Width 14.1 % (11.0-16.0)
[2024-08-30 12:46] LABS: Alanine Aminotransferase 37 U/L (0-40); Albumin Level 4.3 g/dL (3.5-5.0); Anion Gap 14 (12-20); Aspartate Amino Transferase 34 U/L (5-37); Bilirubin Total 0.3 mg/dL (0.0-1.0); Blood Urea Nitrogen 16 mg/dL (9-16); Calcium 9.4 mg/dL (8.4-10.2); Carbon Dioxide 27 mmol/L (22-29); Chloride 106 mmol/L (96-108); Cholesterol 209 mg/dL (<200); Estimated Glomerular Filt Rate > 60; Glucose Fasting 89 mg/dL (60-99); HDL Cholesterol 37 mg/dL (>40); LDL Cholesterol Calculated 140 mg/dL (<100); Potassium 4.5 mmol/L (3.3-5.1); Sodium 142 mmol/L (135-145); TSH reflex Free T4 4.94 uIU/mL (0.32-4.0); Total Protein 7.2 g/dL (6.5-8.0); Triglycerides 164 mg/dL (<150)
[2024-08-30 13:22] LABS: Alkaline Phosphatase 63 U/L (39-117)
[2024-08-30 13:34] LABS: Free T4 (Free Thyroxine) 0.84 ng/dL (0.71-1.85)
== END 2024-08-30 07:05 | disposition home or self-care (01) ==
LOC: HO.HMGCLDS 07:04
PROVIDERS: PCP Physician Assistant; Visit Provider Physician Assistant
DX: I10 Essential (primary) hypertension (principal); E03.9 Hypothyroidism, unspecified; E78.2 Mixed hyperlipidemia
CPT/HCPCS: 36415; 80053; 80061; 84439; 84443; 85027

== ENCOUNTER 2024-09-01 15:16 | Outpatient (AMB) | payer OTHER, SELFPAY ==
[2024-09-01 15:28] VITALS: BP 190/90; PULSE 84; TEMP 36.4; O2SAT 97; BMI 31.0
--- NOTE | 2024-09-01 15:28 | A.OFFPC_ITS ---
Vital Signs 09/01/24 15:28 Height 5 ft 11 in Weight 222 lb 8 oz BMI 31.0 BP 190/90 H Blood Pressure Location Lt brachial Position Sitting Pulse 84 Pulse Source Pulse Oximeter Temp 97.5 F Temp Source Temporal Artery Scan Pulse Oximetry (%) 97 Oxygen Delivery Method Room Air Intake Visit Reasons: f/u HTN/ HLD/ hypothyroid [place] Stitcher Required: No Accompanied by: Self / Same As Patient Allergies No Known Allergies Allergy (Verified 09/01/24 16:02) Medication List - Last Reconciled 09/01/24 by Roberto Carlos Miranda PA-C atenolol 50 mg PO DAILY 90 days levothyroxine 25 mcg PO DAILY miscellaneous medical supply (Blood Pressure Cuff) As directed pravastatin 40 mg PO DAILY 90 days Tobacco use date assessed: 06/02/24 Dental Screening Dental Screen Date: 06/02/24 HPI f/u HTN/ HLD/ hypothyroid HPI Details Patient is a 63 year old male here today for follow-up visit . Patient has a past medical history significant for tobacco dependency, hypertension, hyperlipidemia, lumbar disc disease, obesity. . .. Hypothyroidism:? Most recent TSH slightly improved though still slightly elevated at 4.9. Will increase his levothyroxine 50 mcg dose .. HLD:? Patient's most recent fasting lipid panel showing borderline high cholesterol.? He has been not taking statin therapy over the last 3 weeks as he feels it he has more dizziness with the medication. .. Hypertension: Patient's blood pressure elevated today in office. He has been uncontrolled due to medication non-compliance over the past three to four weeks. He reports being under lot of stress due to personal issues at home He is willing to restart atenolol and monitor his blood pressure. Will consider additional or alternative blood pressure medication .. Tobacco dependency: Smoking 6 cigarettes per day.? He does understand he needs to quit though has found it very difficult. He reports he started smoking as a teenager. Now in lung cancer screening program and does have pulmonary nodule that is being followed Laboratory Tests 02/11/22 11/03/22 08/30/24 07:06 07:25 07:11 RBC 5.04 4.97 Creatinine 1.14 Fasting Glucose 100 H Cholesterol 208 224 LDL Cholesterol, C alc 139 159 TSH 5.33 H 5.22 H 08/30/24 07:41 RBC Creatinine 1.01 Fasting Glucose 89 Cholesterol 209 H LDL Cholesterol, C alc 140 H TSH 4.94 H PFSH Medical History History of COVID-19 Mild obstructive sleep apnea Nicotine dependence, cigarettes, uncomplicated Hypothyroidism Obese HLD (hyperlipidemia) Hypertension, essential Surgical History History of lumbar surgery History of cystoscopy History of dental surgery Family History Father Knee problem CVD (cardiovascular disease) Mother S/P triple vessel bypass CVD (cardiovascular disease) History of carotid endarterectomy Alzheimer's disease Dementia Brother No problems noted. Son No problems noted. Social History Housing: House Alcohol intake: current Alcohol intake frequency: holidays/special occasions only Patient Tobacco Use Status: Current everyday Tobacco user Tobacco use type: Cigarette Cigarettes Per Day: 6 Years Smoked: (onset 18yo , 1/2ppd x 44yrs - 21pyh) e-Cigarette/Vaping Use: Never Used service: Yes ([employer]) Current occupational status: employed Cognitive needs: No Hearing needs: No Vision needs: No Questionnaire Thrive Questionnaire Date Thrive assessed: 06/02/24 I am a: Patient What is your living situation today?: I have a steady place to live Within the past 12 months, did the food you bought not last and you didn't have the money to get more?: Never true Within the past 12 months, did you worry whether your food would run out before you got money to buy more?: Never true Do you have trouble paying for medicines?: No Do you have trouble getting transportation to medical appointments?: No Do you have trouble paying your heating and electricity bill?: No Do you have trouble taking care of your child, family member or friend?: No Do you have trouble with day-to-day activities such as bathing, preparing meals, shopping, managing finances, etc.?: No Are you currently unemployed and looking for a job?: No Are you interested in more education?: No Please select the resources that you would like help with: None Currently or been in a relationship where the following occur: No concerns reported THRIVE Score: 0 GEORGE-7 AMB Questionnaire GEORGE-7 Date GEORGE - 7 assessed: 06/02/24 Source: Developed by Drs. Erasmo Mariee, Sagrario Canales, Abilio Bennett and colleagues, with an educational sukhjinder from [employer]. Physical exam (Primary Care) Vital Signs: Last Vital Signs Temp 97.5 F 09/01/24 15:28 Pulse 84 09/01/24 15:28 BP 190/90 H 09/01/24 15:28 Pulse Ox 97 09/01/24 15:28 Oxygen Delivery Method Room Air 09/01/24 15:28 BMI result Body Mass Index 31.0 BMI Assessment/Plan discussion: High BMI High, discussed plan: lifestyle, weight reduction, dietary and physical activity Tobacco/Smoking Status: Tobacco use Status Tobacco use date assessed 06/02/24 09/01/24 15:28 Patient Tobacco Use Status Current everyday Tobacco 09/01/24 15:28 Tobacco use type Cigarette 09/01/24 15:28 e-Cigarette/Vaping Use Never Used 09/01/24 15:28 Are you ready to quit: No Tobacco cessation counseling provided: Yes Items discussed: Nicotine replacement Relapse Prevention: discussed the importance of a supportive environment, discussed negative mood or depression after quitting, weight gain after smoking is common and discussed dietary, exercise and/or lifestyle changes Number of minutes spent counselin CPT code: 05623 - 4-10 Minutes Thrive Assessment: Date of Thrive Assessment Date Thrive assessed 06/02/24 09/01/24 15:28 Currently or been in a relationship where the following occur: No concerns reported Coding Level of Care Code Est Pt Level 4 (56408) Diagnoses Hypothyroidism, unspecified type E03.9 Hypothyroidism type: unspecified Hypertension, essential I10 Mixed hyperlipidemia E78.2 Hyperlipidemia type: mixed hyperlipidemia Nicotine dependence, cigarettes, uncomplicated F17.210 Additional Codes Vital Signs *Quality* - CPT code: 73306 - 4-10 Minutes ([id number]) Assessment & Plan Assessment & Plan (1) Hypothyroidism: Code(s): E03.9 - Hypothyroidism, unspecified Category: Medical Qualifiers: Hypothyroidism type: unspecified Qualified Code(s): E03.9 - Hypothyroidism, unspecified Plan: Most recent TSH showing improvement though still slightly elevated at 4.9. Will increase his levothyroxine dose to 50 mcg recheck TSH in 3 months. (2) Hypertension, essential: Code(s): I10 - Essential (primary) hypertension Category: Medical Plan: Patient's blood pressure elevated today in office. He has not been taking his blood pressure medication over the last 3 weeks. He will restart atenolol 50 mg which has been effective for him in the past. He will restart blood pressure medication today. Goal blood pressures to be below 140/90 (3) HLD (hyperlipidemia): Code(s): E78.5 - Hyperlipidemia, unspecified Category: Medical Qualifiers: Hyperlipidemia type: mixed hyperlipidemia Qualified Code(s): E78.2 - Mixed hyperlipidemia Plan: Patient continues on simvastatin without side effect. Again has not been taking any medication over last 3 weeks. He promises to restart medication. Goal LDL to be below 130 (4) Nicotine dependence, cigarettes, uncomplicated: Comment: (current smoker, onset 18yo , 1/2ppd x 44yrs - 21pyh) Code(s): F17.210 - Nicotine dependence, cigarettes, uncomplicated Category: Medical Plan: He does admit to smoking about 6 cigarettes per day. Offered him nicotine replacement though he declines my offers. Orders: Orders Lipid Panel 3 Months E78.2 - Mixed hyperlipidemia TSH reflex Free T4 3 Months E03.9 - Hypothyroidism, unspecified Medications: New levothyroxine 50 mcg PO DAILY 30 tabs 3RF 30 days E03.9 - Hypothyroidism, unspecified Discontinued levothyroxine Discontinued Reason: Doctor's Order 25 mcg PO DAILY 30 tabs 3RF E03.9 - Hypothyroidism, unspecified pravastatin Discontinued Reason: Doctor's Order 40 mg PO DAILY 90 days 90 tabs 0RF E78.9 - Disorder of lipoprotein metabolism, unspecified
== END 2024-09-01 16:16 | disposition home or self-care (01) ==
LOC: HO.HMCH 15:17
PROVIDERS: PCP Physician Assistant; Visit Provider Physician Assistant
DX: E03.9 Hypothyroidism, unspecified (principal); I10 Essential (primary) hypertension; E78.2 Mixed hyperlipidemia; F17.210 Nicotine dependence, cigarettes, uncomplicated

== ENCOUNTER → 2024-09-01 15:16 | Outpatient (BNVA) | payer OTHER, SELFPAY | PROVIDERS: PCP Physician Assistant; Visit Provider Physician Assistant ==

== ENCOUNTER 2024-12-16 15:37 | Outpatient (AMB) | payer OTHER, SELFPAY ==
--- NOTE | 2024-12-16 15:48 | A.OFFPC_ITS ---
Vital Signs 12/16/24 15:50 Height 5 ft 11 in Weight 237 lb 2 oz BMI 33.1 BP 126/62 Blood Pressure Location Lt brachial Position Sitting Pulse 59 Pulse Source Pulse Oximeter Temp 97.3 F Temp Source Temporal Artery Scan Pulse Oximetry (%) 97 Oxygen Delivery Method Room Air Intake Visit Reasons: 3mth f/u Intake Note: Patient is here to follow up on COPD, HTN, HLD. Urgent Care Physician Assistant Required: No Precision Jig Grinder: Not Required per policy Accompanied by: Self / Same As Patient Allergies No Known Allergies Allergy (Verified 12/16/24 15:49) Medication List - Last Reconciled 12/16/24 by Roberto Carlos Miranda PA-C albuterol sulfate 90 mcg/actuation (Ventolin HFA) 1 inh inhalation QID 30 days atenolol 50 mg PO DAILY 90 days levothyroxine 50 mcg PO DAILY 30 days levothyroxine 50 mcg PO DAILY 30 days miscellaneous medical supply (Blood Pressure Cuff) As directed Tobacco use date assessed: 12/16/24 Dental Screening Dental Screen Date: 06/02/24 HPI 3mth f/u HPI Details Patient is a 64 year old male here today for follow-up visit . Patient has a past medical history significant for tobacco dependency, hypertension, hyperlipidemia, lumbar disc disease, obesity. . .. Hypothyroidism:? Most recent TSH slightly elevated. We did increase his levo thyroxine to 50 mcg. He has yet to check his TSH to ensure it was normal. He will check TSH soon. .. HLD:? Patient's most recent fasting lipid panel showing borderline high cholesterol.? He has been not taking statin therapy over the last 3 weeks as he feels it he has more dizziness with the medication. .. Hypertension: Patient's blood pressure acceptable today in office. He continues on atenolol 50 mg with good effect. .. Former smoker:quit smoking SEP 01 2024- I congratulated him on this [facility] Medical History (Updated 12/16/24 @ 16:15 by Roberto Carlos Miranda PA-C) History of COVID-19 Mild obstructive sleep apnea Nicotine dependence, cigarettes, uncomplicated Hypothyroidism Obese HLD (hyperlipidemia) Hypertension, essential Surgical History History of lumbar surgery History of cystoscopy History of dental surgery Family History Father Knee problem CVD (cardiovascular disease) Mother S/P triple vessel bypass CVD (cardiovascular disease) History of carotid endarterectomy Alzheimer's disease Dementia Brother No problems noted. Son No problems noted. Social History Housing: House Alcohol intake: current Alcohol intake frequency: holidays/special occasions only Patient Tobacco Use Status: Former Tobacco user (09/01/24) Tobacco use type: Cigarette Cigarettes Per Day: 6 Years Smoked: (onset 18yo , 1/2ppd x 43yrs - 21pyh) e-Cigarette/Vaping Use: Never Used Second Hand Smoke Exposure: No service: Yes ([employer]) Current occupational status: employed Cognitive needs: No Hearing needs: No Vision needs: No Questionnaire Thrive Questionnaire Date Thrive assessed: 06/02/24 I am a: Patient What is your living situation today?: I have a steady place to live Within the past 12 months, did the food you bought not last and you didn't have the money to get more?: Never true Within the past 12 months, did you worry whether your food would run out before you got money to buy more?: Never true Do you have trouble paying for medicines?: No Do you have trouble getting transportation to medical appointments?: No Do you have trouble paying your heating and electricity bill?: No Do you have trouble taking care of your child, family member or friend?: No Do you have trouble with day-to-day activities such as bathing, preparing meals, shopping, managing finances, etc.?: No Are you currently unemployed and looking for a job?: No Are you interested in more education?: No Please select the resources that you would like help with: None Currently or been in a relationship where the following occur: No concerns reported THRIVE Score: 0 GEORGE-7 AMB Questionnaire GEORGE-7 Date GEORGE - 7 assessed: 06/02/24 Source: Developed by Drs. Erasmo Mariee, Sagrario Canales, Abilio Bennett and colleagues, with an educational sukhjinder from [employer]. Review of Systems Const Denies headache(s) Eyes Denies loss of vision ENT Denies vertigo, Denies dizziness, Denies headache(s) and Denies sore throat Card Denies chest pain, Denies leg edema and Denies lightheadedness Resp Denies cough, Denies hemoptysis and Denies wheezing GI Denies abdominal pain, Denies melena, Denies constipation, Denies diarrhea and Denies vomiting Denies dysuria, Denies urinary frequency and Denies urinary urgency Musc Denies arthralgias, Denies joint swelling, Denies numbness and Denies tingling Neuro Denies Abnormal speech present, Denies behavioral changes, Denies vertigo, Denies dizziness, Denies headache(s), Denies loss of vision, Denies memory loss, Denies numbness and Denies tingling Psych Denies anxiety, Denies behavioral changes, Denies depression, Denies memory loss and Denies panic attacks Kyaw/Lymph Denies easy bleeding and Denies easy bruising Aller/Immun Denies wheezing Physical exam (Primary Care) Vital Signs: Last Vital Signs Temp 97.3 F 12/16/24 15:50 Pulse 59 12/16/24 15:50 BP 126/62 12/16/24 15:50 Pulse Ox 97 12/16/24 15:50 Oxygen Delivery Method Room Air 12/16/24 15:50 BMI result Body Mass Index 33.1 BMI Assessment/Plan discussion: High BMI High, discussed plan: lifestyle, weight reduction, dietary and physical activity Tobacco/Smoking Status: Tobacco use Status Tobacco use date assessed 12/16/24 12/16/24 15:51 Patient Tobacco Use Status Former Tobacco user (09/01/24) 12/16/24 16:00 Tobacco use type Cigarette 12/16/24 15:59 e-Cigarette/Vaping Use Never Used 12/16/24 15:59 Thrive Assessment: Date of Thrive Assessment Date Thrive assessed 06/02/24 12/16/24 15:51 Currently or been in a relationship where the following occur: No concerns reported Const General: healthy appearing, no acute distress, alert and awake Nutritional Appearance: well nourished Orientation/consciousness: oriented to person, oriented to place and oriented to time HENMT Ears: TM's normal bilaterally General nose exam: Normal nasal mucous membranes and turbinates present Eyes Conjunctivae: conjunctivae normal Sclerae: sclerae normal Pupils: Equal, round and reactive pupils present Neck Neck: Yes no lymphadenopathy and Yes no JVD Thyroid: Thyroid normal Carotids: no bruits Resp Effort & Inspection: normal respiratory effort and not tachypneic Auscultation: no crackles, no rales, no rhonchi and no wheezes Cardio Rate: regular rate Rhythm: regular rhythm Heart sounds: no murmurs and normal S1 and S2 GI Palpation (GI): Soft to palpation, nontender, no hepatomegaly and no splenomegaly Auscultation: normal bowel sounds Skin General skin exam: no rashes or lesions noted and dry skin Neuro General: oriented to person, oriented to place and oriented to time Cranial nerves: Yes Equal, round and reactive pupils present Speech: No Abnormal speech present Gait exam (Neuro): Normal gait present Motor exam (neuro): no tremor noted Extrem Right upper extremity: full ROM Left upper extremity: full ROM Right lower extremity: full ROM; no edema Left lower extremity: full ROM; no edema Psych Mental Status: mental status grossly normal Speech and movement: Normal speech and movement present Affect: normal affect Attitude: cooperative Thought process: Normal thought process present Coding Level of Care Code Est Pt Level 4 (84847) Diagnoses Hypothyroidism, unspecified type E03.9 Hypothyroidism type: unspecified Hypertension, essential I10 Mixed hyperlipidemia E78.2 Hyperlipidemia type: mixed hyperlipidemia Class 1 obesity E66.811 Former smoker Z87.891 Assessment & Plan Assessment & Plan (1) Hypothyroidism: Code(s): E03.9 - Hypothyroidism, unspecified Category: Medical Qualifiers: Hypothyroidism type: unspecified Qualified Code(s): E03.9 - Hypothyroidism, unspecified Plan: Most recent TSH showing improvement though still slightly elevated at 4.9. We have increased his levothyroxine though he has not yet rechecked his thyroid stimulating hormone. (2) Hypertension, essential: Code(s): I10 - Essential (primary) hypertension Category: Medical Plan: Patient's blood pressure acceptable today in office. He continues on atenolol 50 mg. Will continue his current dose of atenolol with goal blood pressure to remain below 140/90 (3) HLD (hyperlipidemia): Code(s): E78.5 - Hyperlipidemia, unspecified Category: Medical Qualifiers: Hyperlipidemia type: mixed hyperlipidemia Qualified Code(s): E78.2 - Mixed hyperlipidemia Plan: Patient continues on simvastatin without side effect. Again has not been taking any medication over last 3 weeks. He promises to restart medication. Goal LDL to be below 130 (4) Class 1 obesity: Code(s): E66.811 - Obesity, class 1 Category: Medical Plan: Patient does understand his BMI is over 30 will work on being more physically active and adapting to better eating habits to reduce his weight (5) Former smoker: Code(s): Z87.891 - Personal history of nicotine dependence Category: Social Hx Plan: Patient quit smoking 09/01/2024 Medications: Refilled levothyroxine 50 mcg PO DAILY 30 tabs 3RF 30 days E03.9 - Hypothyroidism, unspecified
[2024-12-16 15:50] VITALS: BP 126/62; PULSE 59; TEMP 36.3; O2SAT 97; BMI 33.1
--- OUTSIDE RECORDS SUMMARY | 2024-12-16 16:56 | XMS_ITS | Patient Health Record ---
Author Organization [facility] Address [address] [place] [address] Care Team Providers Care Distillery Supervisor Name Role Phone Jai Sims MD Primary Care Provider Edd Vargas Jr Unavailable Reason For Referral No Information Medications Medication SIG (Take, Route, Fr equency, Duration) Notes Start Date End Date Status MoviPrep 100 GM as directed before c olonoscopy Orally for 1 dose 04/26/2012 04/30/2024 Active Plan Of Treatment Future Test Test Name Order Date COLONOSCOPY 04/26/2012 Insurance Providers Payer Name Payer Address Payer Phone Subscriber Number Group Number Insured Name Patient Relationship to Insured Coverage Start Date Coverage End Date [facility] [address] [place] [phone] [id number] OLAYINKA SEXTON Self - patient is the insured Medical (General) History Medical History History ICD Code Denies [place],DM,CVA,Lung disease,renal dise ase
== END 2024-12-16 16:26 | disposition home or self-care (01) ==
LOC: HO.HMCH 15:38
PROVIDERS: PCP Physician Assistant; Visit Provider Physician Assistant
DX: E03.9 Hypothyroidism, unspecified (principal); I10 Essential (primary) hypertension; E66.811 Obesity, class 1; Z68.33 Body mass index [BMI] 33.0-33.9, adult; E78.2 Mixed hyperlipidemia; Z87.891 Personal history of nicotine dependence

== ENCOUNTER 2024-12-20 06:40 | Outpatient (REF) | payer OTHER, SELFPAY ==
[2024-12-20 12:09] LABS: Cholesterol 246 mg/dL (<200); HDL Cholesterol 35 mg/dL (>40); Triglycerides 253 mg/dL (<150)
[2024-12-20 13:02] LABS: Free T4 (Free Thyroxine) 0.70 ng/dL (0.71-1.85)
== END 2024-12-20 06:41 | disposition home or self-care (01) ==
LOC: HO.HMGCLDS 06:40
PROVIDERS: PCP Physician Assistant; Visit Provider Physician Assistant
DX: E78.2 Mixed hyperlipidemia (principal); E03.9 Hypothyroidism, unspecified
CPT/HCPCS: 36415; 80061; 84439; 84443

== ENCOUNTER 2025-01-24 08:53 | Outpatient (REF) | payer OTHER, SELFPAY ==
--- OUTSIDE RECORDS SUMMARY | 2025-01-24 08:54 | XMS_ITS | Patient Health Record ---
Author Organization [facility] Address [address] [place] [address] Care Team Providers Care Digital Campaign Manager Name Role Phone Jai Sims MD Primary Care Provider Edd Vargas Jr Unavailable [phone] Reason For Referral No Information Medications Medication [...] Insured Coverage Start Date Coverage End Date [facility] [address] [place] [phone] [id number] OLAYINKA SEXTON Self - patient is the insured Medical (General) History Medical History History ICD Code Denies [place],DM,CVA,Lung disease,renal dise ase
[2025-01-24 15:20] LABS: Free T4 (Free Thyroxine) 0.59 ng/dL (0.71-1.85)
== END 2025-01-24 08:54 | disposition home or self-care (01) ==
LOC: HO.HMGCLDS 08:53
PROVIDERS: PCP Physician Assistant; Visit Provider Physician Assistant
DX: E03.9 Hypothyroidism, unspecified (principal)
CPT/HCPCS: 36415; 84439; 84443

== ENCOUNTER 2025-02-19 12:35 | Outpatient (REF) | payer OTHER, SELFPAY ==
--- NOTE | ~2025-02-19 | CT_ITS ---
EXAMINATION: CT LOW-DOSE SCREENING CHEST WITHOUT CONTRAST CLINICAL INFORMATION: 64-year-old male, Smoker, 46 pack year history, lung cancer screening. COMPARISON: 01/17/2024, 12/11/2022. TECHNIQUE: Multidetector volumetric CT imaging of the chest is performed on a Siemens SOMATOM Definition scanner without contrast using low dose technique. Additional 2D coronal and sagittal reformatted images and axial 3D maximum intensity projection (MIP) images are generated on the CT workstation. This CT examination was performed using dose optimization techniques as appropriate, variously including the following: *Automated exposure control *Adjustment of mA and/or kV according to patient size (this includes techniques or standardized protocols for targeted exams where dose is matched to indication/reason for exam; i.e. extremities or head) *Use of iterative reconstruction technique FINDINGS: PULMONARY NODULES: 3 mm fissural-based triangular nodule, right mid major fissure (series 4, image 79), stable and most likely an intrapulmonary lymph node. 2 mm nodule left upper lobe lingular segment (series 4, image 77), unchanged. No new or enlarging pulmonary nodule present. LUNGS: The lungs are well expanded bilaterally. There is mild centrilobular emphysema. There are no consolidations. There is minor scarring abutting the right aspect of the spine in the right lower lobe. There are no interstitial abnormalities. There is mild thickening of the small airways suggesting chronic bronchitis. Central airways are patent. There is no effusion or pneumothorax. MEDIASTINUM: Partially imaged thyroid is normal. No mediastinal lymphadenopathy or mass. Aorta is mild to moderately calcified, however there is no aneurysm. Main pulmonary artery is normal in size. Heart size is normal. There is no pericardial effusion. There is no esophageal abnormality. CORONARY ARTERY CALCIFICATION: Mild to moderate. CHEST WALL/AXILLA: No abnormal lymph nodes or masses. There is mild male gynecomastia. UPPER ABDOMEN: Stable 1.0 x 1.5 cm right adrenal adenoma. Imaged upper abdominal contents otherwise appear normal within confines of low dose, noncontrast technique. OSSEOUS STRUCTURES: No suspicious lytic or blastic bone lesions present. There are mild spinal degenerative changes. CT/CT lung screening IMPRESSION: 1. There are 2 stable pulmonary nodules as described, benign. There are no new or enlarging pulmonary nodules. 2. There is mild emphysema. There is no active lung disease. ASSESSMENT: 1. Lung-RADS Category 2: Benign appearance or behavior of nodules. 2. Lung-RADS Category S: None. RECOMMENDATION: Continued routine annual low-dose CT lung screening in 1 year is recommended. An order for CT CHEST LOW DOSE CANCER SCREENING ([id number]) can be placed. Electronically signed by: Logan Fish MD 02/19/2025 01:32 PM EDT
== END 2025-02-19 12:36 | disposition home or self-care (01) ==
LOC: HO.CT 12:35
PROVIDERS: PCP Physician Assistant; Visit Provider Physician Assistant Medical
DX: Z12.2 Encounter for screening for malignant neoplasm of respiratory organs (principal); F17.210 Nicotine dependence, cigarettes, uncomplicated
CPT/HCPCS: 71271

== ENCOUNTER → 2025-02-19 12:37 | Outpatient (BNV) | payer OTHER, SELFPAY | PROVIDERS: PCP Physician Assistant; Visit Provider Radiology Diagnostic Radiology | DX: F17.210 Nicotine dependence, cigarettes, uncomplicated (principal) | CPT/HCPCS: 71271 ==

== ENCOUNTER 2025-04-21 08:45 | Outpatient (REF) | payer OTHER, SELFPAY ==
--- NOTE | ~2025-04-21 | US_ITS ---
EXAMINATION: US THYROID HISTORY: E03.9 - Hypothyroidism, unspecified TECHNIQUE: Real-time grayscale ultrasound imaging was performed and images were reviewed. COMPARISON: There are no prior studies available for comparison. FINDINGS: SIZE: The right thyroid lobe measures 4.8 x 2.2 x 1.7 cm. The left thyroid lobe measures 4.6 x 1.8 x 1.6 cm. The isthmus measures 7 mm. FLOW: Flow to the gland is normal. ECHOGENICITY: The echotexture of the gland is mildly heterogeneous. NODULES: No nodules are identified. US/US thyroid IMPRESSION: Mildly heterogeneous thyroid echotexture. No nodules are identified. ACR TI-RADS Guidelines TR1 (0 points): Benign. No follow-up or biopsy required TR2 (2 points): Not Suspicious. No biopsy or follow up indicated TR3 (3 points): Mildly Suspicious. FNA if >= 2.5 cm, Follow if >= 1.5 cm TR4 (4-6 points): Moderately Suspicious. FNA if >= 1.5 cm, Follow if >= 1.0 cm TR5 (>=7 points): Highly Suspicious. FNA if >= 1.0 cm, Follow if >= 0.5 cm Electronically signed by: Erasmo Gutierrez MD 04/21/2025 09:24 AM [facility]
--- OUTSIDE RECORDS SUMMARY | 2025-04-21 09:01 | XMS_ITS | Patient Health Record ---
Author Organization [facility] Address [address] [place] [address] Care Team Providers Care Golf Cart Mechanic Name Role Phone Jai Sims MD Primary Care Provider Edd Vargas Jr Unavailable [phone] Reason For Referral No Information Medications Medication SIG (Take, Route, Frequency, Duration) Notes Start Date End Date Status MoviPrep 100 GM Solution Reconstituted as directed before colonoscopy Orally; Duration: 1 dose 04/26/2012 Active Social History Social History Additional Details Category Social Info Options Details Miscellaneous: Marital status: Occupation: school [employer] Plan Of Treatment Future Test Test Name Order Date COLONOSCOPY 04/26/2012 Insurance Providers Payer Name Payer Address Payer Phone Subscriber Number Group Number Insured Name Patient Relationship to Insured Coverage Start Date Coverage End Date [facility] [address] [place] [phone] [id number] OLAYINKA SEXTON Self - patient is the insured Medical (General) History Medical History History ICD Code Denies [place],DM,CVA,Lung disease,renal dise ase
== END 2025-04-21 08:46 | disposition home or self-care (01) ==
LOC: HO.HMGCX 08:45
PROVIDERS: PCP Physician Assistant; Visit Provider Physician Assistant
DX: E01.0 Iodine-deficiency related diffuse (endemic) goiter (principal)
CPT/HCPCS: 76536

== ENCOUNTER → 2025-04-21 08:47 | Outpatient (BNV) | payer OTHER, SELFPAY | PROVIDERS: PCP Physician Assistant; Visit Provider Radiology Diagnostic Radiology | DX: E03.9 Hypothyroidism, unspecified (principal) | CPT/HCPCS: 76536 ==